=== PATIENT | female | born 1990 | race American Indian/Alaskan Native ===

== ENCOUNTER 2016-10-10 10:50 | Emergency (ER) | payer OTHER ==
[2016-10-10 11:00] VITALS: BP 127/91
[2016-10-10] MEDS ORDERED: MOTRIN PO ONE (11:40)
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
== END 2016-10-10 12:10 ==
LOC: ED 10:50
DX: S00.83XA Contusion of other part of head, initial encounter (principal); F17.200 Nicotine dependence, unspecified, uncomplicated; F12.10 Cannabis abuse, uncomplicated; Y04.0XXA Assault by unarmed brawl or fight, initial encounter; Y93.89 Activity, other specified; Y99.8 Other external cause status; Y92.89 Other specified places as the place of occurrence of the external cause
CPT/HCPCS: 99283